=== PATIENT | female | born 1965 | race Two or more races ===

== ENCOUNTER 2018-09-06 22:31 | Emergency (ER) | payer SELFPAY ==
[~2018-09-06] VITALS: Ht 165.1 cm; Wt 68.0 kg
[2018-09-06 22:35] VITALS: BP 165/97
== END 2018-09-07 17:00 | disposition left against medical advice (07) ==
LOC: ER 09-07 17:00
DX: R51 Headache (principal); Z53.21 Procedure and treatment not carried out due to patient leaving prior to being seen by health care provider
CPT/HCPCS: 99283